=== PATIENT | female | born 1965 | race Caucasian/White ===

== ENCOUNTER 2019-11-10 17:46 | Emergency (ER) | payer BC ==
--- OUTSIDE RECORDS SUMMARY | 2019-11-10 18:19 | XMS REPORT | Continuity of Care Document ---
:1965 External Reference #:[id number] Author Name Carmencita Babb MD Address [address] [place] [address] Care Team Providers Name Role Phone Carmencita Babb MD - Family Medicine Care Team Information [employer] Problems Active Problems Provider Date Diabetes mellitus Shruti March M.D. Onset: 11/04/2014 Pure hypercholesterolemia Onset: 12/26/2011 Essential hypertension Onset: 12/26/2011 Hypothyroidism Shruti March M.D. Onset: 04/29/2015 Benign essential hypertension Carmencita Babb MD Onset: 05/24/2017 Mixed hyperlipidemia Carmencita Babb MD Onset: 05/24/2017 Hyperlipidemia Carmencita Babb MD Onset: 05/24/2017 Gastro-esophageal reflux disease with Carmencita Babb MD Onset: 05/24/2017 esophagitis Working through the pain of grief Carmencita Babb MD Onset: 05/24/2017 Edema Carmencita Babb MD Onset: 05/24/2017 Screening for malignant neoplasm of colon Kalpesh Weir MD Onset: 06/09/2017 Heartburn Kalpesh Weir MD Onset: 06/09/2017 Benign neoplasm of colon Kalpesh Weir MD Onset: 09/08/2017 Benign neoplasm of stomach Kalpesh Weir MD Onset: 09/08/2017 Other hemorrhoids Kalpesh Weir MD Onset: 09/08/2017 Overweight Carmencita Babb MD Onset: 12/25/2017 Gastro-esophageal reflux disease with Kalpesh Weir MD Onset: 07/27/2018 esophagitis Type 2 diabetes mellitus Carmencita Babb MD Onset: 12/28/2018 Volunteer activity Carmencita Babb MD Onset: 12/28/2018 Strain of trapezius muscle Carmencita Babb MD Onset: 06/28/2019 Mckeon's esophagus Carmencita Babb MD Onset: 10/04/2019 Social History Type Date Description Comments Sex Unknown Tobacco Use Start: Unknown Never Smoked Cigarettes Smoking Status Reviewed: 10/04/19 Never Smoked Cigarettes Smokeless Tobacco Never Used Smokeless Tobacco ETOH Use Rarely consumes alcohol 1 dr/MO Tobacco Use Start: Unknown Patient has never smoked Recreational Drug Use Denies Drug Use Allergies, Adverse Reactions, Alerts Active Allergies Reaction Severity Comments Date Erythromycin 12/26/2011 Medications Active Medications SIG Qnty Indications Ordering Date Provider Doxycycline Hyclate 1 tab by mouth 20tabs L03.111 Skinny, 10/02/2019 2X/Day MD Carmencita 100mg Tablets Mupirocin apply to affected 22gm L03.111 Skinny, 10/02/2019 2% Ointment area two times a MD Carmencita day Metoprolol Succinate Take 1 Tablet By 90tabs Skinny, 09/23/2019 ER Mouth Every Day MD Carmencita 100mg Tablets ER 24HR Glipizide ER Take 1 Tablet By 180Tablet Skinny, 02/27/2019 5mg Mouth With MD Carmencita Tablets ER 24HR Breakfast And Supper Lisinopril Take 1 Tablet By 90tabs Skinny, 12/28/2018 40mg Tablets Mouth Every Day MD Carmencita Chlorthalidone 1 by mouth in in 90tabs Skinny, 12/28/2018 50mg the morning MD Carmencita Tablets Januvia Take 1 Tablet By 90tabs E66.3 Skinny, 09/13/2018 50mg Tablets Mouth Every Day MD Carmencita Esomeprazole 1 cap by mouth 90caps K21.0 [facility], 07/27/2018 Magnesium every day latasha Aleman MD 20mg Capsules morning DR Chuy Paniagua Blood check fasting 1units E66.3 Skinny, 08/03/2016 Glucose Monitoring glucose 1x/day at MD Carmencita System alternating times Device dx E11.9 Tyroneyle Lancets check glucose 50units E66.3 Skinny, 08/03/2016 Misc 1x/day e11.9 MD Carmencita Levothyroxine Sodium Take 1 Tablet By 90tabs Skinny, 04/29/2015 Mouth Daily MD Carmencita 75mcg Tablets Simvastatin Take 1 Tablet By 90tabs Skinny, 12/30/2011 10mg Mouth Every Day MD Carmencita Tablets Multivitamin Adult 1 by mouth every Unknown day Tablets History Medications Furosemide Take 1 Tablet By 90tabs Carmencita Babb MD 09/23/2019 - 20mg Tablets Mouth In The 10/02/2019 Morning Medications Administered in Office Medication SIG Qnty Indications Ordering Provider Date PPD Injection Carmencita Babb MD 10/02/2019 PPD Injection Family Nurse 09/11/2018 PPD Injection Carmencita Babb MD 11/04/2016 PPD Injection Carmencita Babb MD 11/02/2016 Immunizations CPT Code Status Date Vaccine Reaction Lot # [id number] Given 10/02/2019 Influenza Virus Vaccine, [id number] Quadrivalent, 36 Mos+, .5ML 88197 Given 06/28/2019 Hepatitis B Vaccine Adult [id number] 73951 Given 02/28/2019 Hepatitis B Vaccine Adult [id number] 26646 Given 12/28/2018 Hepatitis B Vaccine Adult [id number] 39789 Given 12/28/2018 MMR Vaccine, Live, For [id number] Subcutaneous Use 37752 Given 09/13/2018 Influenza Virus Vaccine, [id number] Quadrivalent, 36 Mos+, .5ML 12290 Given 07/11/2017 Influenza Virus Vaccine [place] [address] Given 05/24/2017 Tdap injection [id number] 70192 Given 08/03/2016 Influenza Virus Vaccine Split Virus Use For Individual 3Yr Older Q2038 Given 09/02/2015 Influenza Vaccine (Fluzone) [id number] Age 3 And Older 73344 Given 09/22/2014 flu vaccination Per [facility] [address] Given 08/19/2013 flu vaccination 84269 Given 08/08/2012 flu vaccination 93703 Given 12/26/2011 flu vaccination 61593 Given 11/22/2010 flu vaccination 63285 Given 11/02/2009 flu vaccination 15390 Given 11/02/2009 H1N1 Immuniation Adminstration 17124 Given 02/03/1998 Tetnus Injection Vital Signs Date Vital Result Comment 10/04/2019 9:34am BP Systolic 112 mmHg BP Diastolic 72 mmHg Body Temperature 97.4 F Heart Rate 55 /min Respiratory Rate 16 /min Height 64 inches 5'4" Weight 270.00 lb BMI (Body Mass Index) 46.3 kg/m2 BSA (Body Surface Area) 2.22 m2 [place] body weight in kilograms 54 kg O2 % BldC Oximetry 99 % 10/02/2019 1:34pm BP Systolic Sitting Left Arm 128 mmHg BP Diastolic Sitting Left Arm 76 mmHg Body Temperature 98.1 F Heart Rate 72 /min Respiratory Rate 18 /min Height 64 inches 5'4" Weight 269.00 lb BMI (Body Mass Index) 46.2 kg/m2 BSA (Body Surface Area) 2.22 m2 [place] body weight in kilograms 54 kg Results Test Acquired Date Facility Test Result H/L Range Note Urine Dipstick 10/04/2019 [facility] Ua Color yellow Yellow Ua Clarity clear Clear Ua Leuko neg Negative Ua Nitrite neg Negative Ua Urobilinogen 3.5 High 0.2 - 1.0 E.U./dL Ua Protein pos Negative Ua PH 5.5 Low 6.5-7.5 Ua Blood neg Negative Ua Specific [place] 1.030 1.010-1.030 Ua Ketones pos Negative Ua Bilirubin pos Negative Ua Glucose pos Negative Glycohemoglobin 06/28/2019 [facility] Glycohemoglobin 13.0 % High 4.2-6.3 1, [address] (A1c) [place] [address] [phone] eAG 326 mg/dL Urine Dipstick 06/28/2019 [facility] Inhouse Ua Leuko - Negative Ua Nitrite - Negative Ua Urobilinogen .2 0.2 - 1.0 E.U./dL Ua Protein - Negative Ua PH 5 Low 6.5-7.5 Ua Blood - Negative Ua Specific [place] 1.020 1.010-1.030 Ua Ketones - Negative Ua Bilirubin - Negative Ua Glucose 3+ High Negative 1 E11.21 2 Elevated levels of HbA1c suggest the need for more aggressive treatment of glycemia. The [place] [employer] recommends that a primary goal of therapy should be a HbA1c of <7% and that physicians should re-evaluate the treatment regimen in patients with HbA1c values consistently >8%. Procedures Date Code Description Status 10/04/2019 [id number] Mammogram Completed 09/13/2019 [id number] Diabetic Foot Exam Completed 11/06/2018 [id number] Bone Mineral Density Test Completed 07/27/2017 [id number] Colonoscopy Completed Medical Devices Description No Information Available Encounters Type Date Location Provider Dx Diagnosis Office Visit 10/02/2019 Family Medicine Carmencita Babb, L03.111 Cellulitis of 1:30p Marcos SOLANO MD right axilla Z23 Encounter for immunization Z11.1 Encounter for screening for respiratory tuberculosis F43.21 Adjustment disorder with depressed mood Office Visit 06/28/2019 2:30p Family Medicine Carmencita Babb, S96.212A Strain of Marcos SOLANO MD intrinsic msl/tnd at ank/ft level, left foot, init E11.21 Type 2 diabetes mellitus with diabetic nephropathy F43.21 Adjustment disorder with depressed mood I10 Essential (primary) hypertension S46.811A Strain of musc/fasc/tend at shldr/up arm, right arm, init Z23 Encounter for immunization Assessments Date Code Description Provider 10/04/2019 Z00.00 Encounter for general adult medical Carmencita Babb MD examination without abnormal findings 10/04/2019 E11.21 Type 2 diabetes mellitus with diabetic Carmencita Babb MD nephropathy 10/04/2019 I10 Essential (primary) hypertension Carmencita Babb MD 10/04/2019 E78.5 Hyperlipidemia, unspecified Carmencita Babb MD 10/04/2019 E03.9 Hypothyroidism, unspecified Carmencita Babb MD 10/04/2019 F43.21 Adjustment disorder with depressed mood Carmencita Babb MD 10/04/2019 K21.0 Gastro-esophageal reflux disease with Carmencita Babb MD esophagitis 10/04/2019 K22.70 Mckeon's esophagus without dysplasia Carmencita Babb MD 10/04/2019 L03.111 Cellulitis of right axilla Carmencita Babb MD 10/02/2019 L03.111 Cellulitis of right axilla Carmencita Babb MD 10/02/2019 Z23 Encounter for immunization Carmencita Babb MD 10/02/2019 Z11.1 Encounter for screening for respiratory Carmencita Babb MD tuberculosis 10/02/2019 F43.21 Adjustment disorder with depressed mood Carmencita Babb MD 06/28/2019 S96.212A Strain of intrinsic muscle and tendon at ankle Carmencita Babb MD and foot level, left foot, initial encounter 06/28/2019 E11.21 Type 2 diabetes mellitus with diabetic Carmencita Babb MD nephropathy 06/28/2019 F43.21 Adjustment disorder with depressed mood Carmencita Babb MD 06/28/2019 I10 Essential (primary) hypertension Carmencita Babb MD 06/28/2019 S46.811A Strain of other muscles, fascia and tendons at Carmencita Babb MD shoulder and upper arm level, right arm, initial encounter 06/28/2019 Z23 Encounter for immunization Carmencita Babb MD Plan of Treatment Future Appointment(s):02/07/2020 10:15 am - Carmencita [facility]abb MD at [facility]10/04/2019 - Carmencita Babb MDZ00.00 Encounter for general adult medical examination without abnormal findingsComments:START EXERCISING ON YOUR STATIONARY BIKELOSE WEIGHT;DAILY SUNSCREEN FOR SKIN CANCER PREVENTION; CALCIUM INTAKE DISCUSSEDPAP/PELVIC, COLONOSCOPY UP TO DATE; MAMMOGRAM AND BONE DENSITY ARE ORDEREDLABS ORDERED; IMMUNIZATIONS UP TO DATE;HEALTH CARE PROXY IN OTZXTP36.21 Type 2 diabetes mellitus with diabetic nephropathyComments:labs ordered; considering adding farxiga;cont. on same meds for now; ck glucose more regularly;increase exercise to help you lose weight.follow up with kidney specialist regularly, do not take any antiinflammatory medications like ibuprofen or naproxenFollow up:4 MOI10 Essential (primary) hypertensionComments: WATCH SALT; CONT. WITH SAME MEDICAL REGIME;REGULAR EXERCISE IS SIDHU.E78.5 Hyperlipidemia, unspecifiedComments:CHECK FASTING LIPIDS; CONT. ON SAME MEDS PENDING RESULTS;FOLLOW LOW-CHOL. DIET, REG. GBWEGEFEK26.9 Hypothyroidism, unspecifiedComments:CHECK THYROID LEVEL; ADJUST DOSE NEEDED.F43.21 Adjustment disorder with depressed moodComments:CONTINUE WITH YOUR REGULAR COUNSELING, THIS IS THE BEST THING YOU CAN DO.K21.0 Gastro-esophageal reflux disease with esophagitisComments:CONTINUE ON YOUR CURRENT REGIME AND FOLLOW REFLUX PRECAUTIONS.K22.70 Mckeon's esophagus without dysplasiaComments:WE TALKED ABOUT THIS. UPPER ENDOSCOPY DUE NEXT YEAR PER CURRENT RECOMMENDATIONS.L03.111 Cellulitis of right axillaComments:IMPROVING, HEALING BY SECONDARY INTENTION. FINISH CURRENT ANTIBIOTICS.F/U IF NOT HEALED BY 3 WEEKS Functional Status Functional Condition Comment Date Status Glasses 05/24/2017 Active Mental Status Description No Information Available Referrals Refer to Reason for Referral Status Appt Date Carmencita Babb MD Created [address], [address] [place] [address] [phone]
--- OUTSIDE RECORDS SUMMARY | 2019-11-10 18:20 | XMS REPORT | Continuity of Care Document ---
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 Problems Active Problems Provider Date Diabetes mellitus [...] Esomeprazole 1 cap by mouth 90caps K21.0 [facility], 07/27/2018 Magnesium every day latasha Aleman [...] Code Status Date Vaccine Reaction Lot # [id number] Given 10/02/2019 Influenza Virus Vaccine, [id number] Quadrivalent, 36 Mos+, .5ML 08824 Given 06/28/2019 Hepatitis B Vaccine Adult [id number] 02650 Given 02/28/2019 Hepatitis B Vaccine Adult [id number] 39301 Given 12/28/2018 Hepatitis B Vaccine Adult [id number] 32565 Given 12/28/2018 MMR Vaccine, Live, For [id number] Subcutaneous Use 30442 Given 09/13/2018 Influenza Virus Vaccine, [id number] Quadrivalent, 36 Mos+, .5ML 82174 Given 07/11/2017 Influenza Virus Vaccine [place] [address] Given 05/24/2017 Tdap injection [id number] 29429 Given 08/03/2016 Influenza Virus Vaccine Split Virus Use For Individual 3Yr Older Q2038 Given 09/02/2015 Influenza Vaccine (Fluzone) [id number] Age 3 And Older 77970 Given 09/22/2014 flu vaccination [facility] [place] [address] Given 08/19/2013 flu vaccination 61844 Given 08/08/2012 flu vaccination 60372 Given 12/26/2011 flu vaccination 17382 Given 11/22/2010 flu vaccination 49494 Given 11/02/2009 flu vaccination 19140 Given 11/02/2009 H1N1 Immuniation Adminstration 49437 Given 02/03/1998 Tetnus Injection Vital Signs Date Vital Result Comment 10/04/2019 9:34am BP Systolic 112 mmHg BP Diastolic 72 mmHg Body Temperature 97.4 F Heart Rate 55 /min Respiratory Rate 16 /min Height 64 inches 5'4" Weight 270.00 lb BMI (Body Mass Index) 46.3 kg/m2 BSA (Body Surface Area) 2.22 m2 [place] body weight in kilograms 54 kg O2 % BldC Oximetry 99 % 10/02/2019 1:34pm BP Systolic Sitting Left Arm 128 mmHg BP Diastolic Sitting Left Arm 76 mmHg Body Temperature 98.1 F Heart Rate 72 /min Respiratory Rate 18 /min Height 64 inches 5'4" Weight 269.00 lb BMI (Body Mass Index) 46.2 kg/m2 BSA (Body Surface Area) 2.22 m2 [place] body weight in kilograms 54 kg Results Test Acquired Date Facility Test Result H/L Range Note Urine Dipstick 10/04/2019 [facility] Ua Color yellow Yellow Ua Clarity clear Clear Ua Leuko neg Negative Ua Nitrite neg Negative Ua Urobilinogen 3.5 High 0.2 - 1.0 E.U./dL Ua Protein pos Negative Ua PH 5.5 Low 6.5-7.5 Ua Blood neg Negative Ua Specific [place] 1.030 1.010-1.030 Ua Ketones pos Negative Ua Bilirubin pos Negative Ua Glucose pos Negative Glycohemoglobin 06/28/2019 [facility] Glycohemoglobin 13.0 % High 4.2-6.3 1, [address] (A1c) [place] [address] [phone] eAG 326 mg/dL Urine Dipstick 06/28/2019 [facility] Inhouse Ua Leuko - Negative Ua Nitrite - Negative Ua Urobilinogen .2 0.2 - 1.0 E.U./dL Ua Protein - Negative Ua PH 5 Low 6.5-7.5 Ua Blood - Negative Ua Specific [place] 1.020 1.010-1.030 Ua Ketones - Negative Ua Bilirubin - Negative Ua Glucose 3+ High Negative 1 E11.21 2 Elevated levels of HbA1c suggest the need for more aggressive treatment of glycemia. The [place] [employer] recommends that a primary goal of therapy should be a HbA1c of <7% and that physicians should re-evaluate the treatment regimen in patients with HbA1c values consistently >8%. Procedures Date Code Description Status 10/04/2019 [id number] Mammogram Completed 09/13/2019 [id number] Diabetic Foot Exam Completed 11/06/2018 [id number] Bone Mineral Density Test Completed 07/27/2017 [id number] Colonoscopy Completed Medical Devices Description No Information Available Encounters Type Date Location Provider Dx Diagnosis Office Visit 10/04/2019 Family Medicine Carmencita Babb, Z00.00 Encntr for general 9:30a Marcos SOLANO MD adult medical exam w/o abnormal findings E11.21 Type 2 diabetes mellitus with diabetic nephropathy I10 Essential (primary) hypertension E78.5 Hyperlipidemia, unspecified E03.9 Hypothyroidism, unspecified F43.21 Adjustment disorder with depressed mood K21.0 Gastro-esophageal reflux disease with esophagitis K22.70 Mckeon's esophagus without dysplasia L03.111 Cellulitis of right axilla Office Visit 06/28/2019 2:30p Family Medicine Carmencita [...] 10/02/2019 L03.111 Cellulitis of right axilla Carmencita Bbab MD 06/28/2019 S96.212A Strain of intrinsic muscle [...] 10:15 am - Carmencita Babb MD at [facility]10/02/2019 - Carmencita Babb MDL03.111 Cellulitis of right axillaNew Medication:Doxycycline Hyclate 100 mg - 1 tab by mouth 2X/ DayMupirocin 2 % - apply to affected area two times a dayComments:MORE ANTIBIOTICS PRESCRIBED;MUPIROCIN OINTMENT TO SITE;HOT PACKS OR SOAKS 2-3 X/ DAYTHIS IS A HEALING SEBACEOUS GLAND CYST, YOU MAY EVENTUALLY NEED IT EXCISED.Follow up:HAS APPT. Functional Status Functional Condition Comment Date Status Glasses 05/24/2017 Active Mental Status Description No Information Available Referrals Refer to Reason for Referral Status Appt Date Carmencita Babb MD Created [address] [facility], [address] [place] [address] [phone]
--- OUTSIDE RECORDS SUMMARY | 2019-11-10 18:20 | XMS REPORT | Continuity of Care Document ---
:1965 External Reference #:[id number] Author Name Carmencita Babb MD Address [address] [place] [address] Care Team Providers Name Role Phone Carmencita Babb MD - Family Medicine Care Team Information Information Clerk Problems Active Problems Provider Date Diabetes mellitus [...] Esomeprazole 1 cap by mouth 90caps K21.0 [facility], 07/27/2018 Magnesium every day latasha [...] Code Status Date Vaccine Reaction Lot # 26964 Given 10/02/2019 Influenza Virus Vaccine, [id number] Quadrivalent, 36 Mos+, .5ML 60100 Given 06/28/2019 Hepatitis B Vaccine Adult [id number] 35275 Given 02/28/2019 Hepatitis B Vaccine Adult [id number] 78244 Given 12/28/2018 Hepatitis B Vaccine Adult [id number] 75103 Given 12/28/2018 MMR Vaccine, Live, For [id number] Subcutaneous Use 53157 Given 09/13/2018 Influenza Virus Vaccine, [id number] Quadrivalent, 36 Mos+, .5ML 77642 Given 07/11/2017 Influenza Virus Vaccine [place] [address] Given 05/24/2017 Tdap injection [id number] 66290 Given 08/03/2016 Influenza Virus Vaccine Split Virus Use For Individual 3Yr Older Q2038 Given 09/02/2015 Influenza Vaccine (Fluzone) [id number] Age 3 And Older 84669 Given 09/22/2014 flu vaccination [facility] [place] [address] Given 08/19/2013 flu vaccination 28552 Given 08/08/2012 flu vaccination 52390 Given 12/26/2011 flu vaccination 36913 Given 11/22/2010 flu vaccination 84095 Given 11/02/2009 flu vaccination 08485 Given 11/02/2009 H1N1 Immuniation Adminstration 34348 Given 02/03/1998 Tetnus Injection Vital Signs Date Vital Result Comment 10/04/2019 9:34am BP Systolic 112 mmHg BP Diastolic 72 mmHg Body Temperature 97.4 F Heart Rate 55 /min Respiratory Rate 16 /min Height 64 inches 5'4" Weight 270.00 lb BMI (Body Mass Index) 46.3 kg/m2 BSA (Body Surface Area) 2.22 m2 [place] body weight in kilograms 54 kg O2 % BldC Oximetry 99 % 10/02/2019 1:34pm BP Systolic Sitting Left Arm 128 mmHg BP Diastolic Sitting Left Arm 76 mmHg Body Temperature 98.1 F Heart Rate 72 /min Respiratory Rate 18 /min Height 64 inches 5'4" Weight 269.00 lb BMI (Body Mass Index) 46.2 kg/m2 BSA (Body Surface Area) 2.22 m2 [place] body weight in kilograms 54 kg Results Test Acquired Date Facility Test Result H/L Range Note Urine Dipstick 10/04/2019 [facility] Ua Color yellow Yellow Ua Clarity clear Clear Ua Leuko neg Negative Ua Nitrite neg Negative Ua Urobilinogen 3.5 High 0.2 - 1.0 E.U./dL Ua Protein pos Negative Ua PH 5.5 Low 6.5-7.5 Ua Blood neg Negative Ua Specific [place] 1.030 1.010-1.030 Ua Ketones pos Negative Ua Bilirubin pos Negative Ua Glucose pos Negative Glycohemoglobin 06/28/2019 [facility] Glycohemoglobin 13.0 % High 4.2-6.3 1, [address] (A1c) [place] [address] [phone] eAG 326 mg/dL Urine Dipstick 06/28/2019 [facility] Inhouse Ua Leuko - Negative Ua Nitrite - Negative Ua Urobilinogen .2 0.2 - 1.0 E.U./dL Ua Protein - Negative Ua PH 5 Low 6.5-7.5 Ua Blood - Negative Ua Specific [place] 1.020 1.010-1.030 Ua Ketones - Negative Ua Bilirubin - Negative Ua Glucose 3+ High Negative 1 E11.21 2 Elevated levels of HbA1c suggest the need for more aggressive treatment of glycemia. The [place] Diabetes Association recommends that a primary goal of therapy should be a HbA1c of <7% and that physicians should re-evaluate the treatment regimen in patients with HbA1c values consistently >8%. Procedures Date Code Description Status 10/04/2019 [id number] Mammogram Completed 10/02/2019 95203 Debridement:Skin, And Subcutaneous Tissue Completed 09/13/2019 [id number] Diabetic Foot Exam Completed 11/06/2018 [id number] Bone Mineral Density Test Completed 07/27/2017 [id number] Colonoscopy Completed Medical Devices Description No Information [...] Cellulitis of right axilla Carmencita Babb MD 06/28/2019 S96.212A Strain of [...] other muscles, fascia and tendons at Carmencita Bbab MD shoulder and upper arm level, right arm, initial encounter 06/28/2019 Z23 Encounter for immunization Carmencita Babb MD Plan of Treatment Future Appointment(s):02/07/2020 10:15 am - Carmencita Babb MD at [facility]10/04/2019 - Carmencita Babb MDZ00.00 Encounter for general adult medical examination without abnormal findingsComments:START EXERCISING ON YOUR STATIONARY BIKELOSE WEIGHT;DAILY SUNSCREEN FOR SKIN CANCER PREVENTION; CALCIUM INTAKE DISCUSSEDPAP/PELVIC, COLONOSCOPY UP TO DATE; MAMMOGRAM AND BONE DENSITY ARE ORDEREDLABS ORDERED; IMMUNIZATIONS UP TO DATE;HEALTH CARE PROXY IN QDGWPW70.21 Type 2 diabetes mellitus with diabetic nephropathyComments:labs ordered;cont. on same meds for now; ck glucose more regularly;increase exercise to help you lose weight.follow up with kidney specialist regularly, do not take any antiinflammatory medications like ibuprofen or naproxenFollow up:4 MOI10 Essential (primary) hypertensionComments:WATCH SALT; CONT. WITH SAME MEDICAL REGIME;REGULAR EXERCISE IS SIDHU.E78.5 Hyperlipidemia, unspecifiedComments:CHECK FASTING LIPIDS; CONT. ON SAME MEDS PENDING RESULTS;FOLLOW LOW-CHOL. DIET, REG. OSECDEMOB96.9 Hypothyroidism, unspecifiedComments:CHECK THYROID LEVEL; ADJUST DOSE NEEDED.F43.21 Adjustment disorder with depressed moodComments:CONTINUE WITH YOUR REGULAR COUNSELING, THIS IS THE BEST THING YOU CAN DO.K21.0 Gastro- esophageal reflux disease with esophagitisComments:CONTINUE ON YOUR CURRENT [...] Appt Date Carmencita Babb MD Created [address] [facility], [address] [place] [address] [phone]
[2019-11-10 18:47] VITALS: BP 92/60
--- NOTE | 2019-11-10 18:54 | UC ---
Respiratory Complaint HPI - HPI Summary HPI Summary: 54-year-old female presents with one-week history of a productive cough. States over the past 2-3 days has also started developing some nasal congestion and clear nasal discharge. States cough is worse with activity. Complaints of total chest "achiness" with coughing. Denies fever, chills, ear pain, sore throat, abdominal pain, nausea, or vomiting. - History of Current Complaint Chief Complaint: UCRespiratory Stated Complaint: COUGH/CONGESTION Time Seen by Provider: 11/10/19 18:22 Hx Obtained From: Patient Hx Last Menstrual Period: age 41~ Pain Intensity: 0 - Allergies/Home Medications Allergies/Adverse Reactions: Allergies Allergy/AdvReac Type Severity Reaction Status Date / Time erythromycin base Allergy Severe Hives all Verified 11/10/19 18:48 over Home Medications: Home Medications Chlorthalidone 1 dose PO DAILY 11/10/19 [History Confirmed 11/10/19] Dapagliflozin Propanediol [Farxiga] 1 dose PO QAM 11/10/19 [History Confirmed ] Esomeprazole(NF) [NEXium(NF)] 20 mg PO DAILY 11/10/19 [History Confirmed ] Levothyroxine TAB* [Synthroid TAB*] 50 mcg PO QAM 11/10/19 [History Confirmed ] Lisinopril TAB* [Prinivil TAB*] 40 mg PO DAILY 11/10/19 [History Confirmed 11/10] Metoprolol Succinate 150 mg PO QAM 11/10/19 [History Confirmed 11/10/19] Sitagliptin Phosphate [Januvia] 1 dose PO DAILY 11/10/19 [History Confirmed 03/25] glipiZIDE [Glipizide] 1 dose PO BID 11/10/19 [History Confirmed 11/10/19] PMH/Surg Hx/FS Hx/Imm Hx Endocrine History: Diabetes, Hypothyroidism, Dyslipidemia Cardiovascular History: Hypertension GI/ History: Gastroesophageal Reflux - Surgical History Surgical History: Yes Surgery Procedure, Year, and Place: 1992 C SECTION AND LEFT OOPHORECTOMY, [facility]. 1995 & 1999 CSECTION X2, [facility]. 2004 LAPAROSCOPIC CHOLECYSTECTOMY, [facility]. 2014- LEFT EYE- [facility] [place] - Family History Known Family History: Positive: Non-Contributory - Social History Occupation: Employed Full-time Lives: With Family Alcohol Use: Rare Substance Use Type: None Smoking Status (MU): Never Smoked Tobacco Review of Systems All Other Systems Reviewed And Are Negative: Yes Constitutional: Negative: Fever, Chills Skin: Negative: Rash Eyes: Negative: Drainage, Eye Redness ENT: Positive: Nasal Discharge, Sinus Congestion. Negative: Sore Throat, Ear Ache, Sinus Pain/Tenderness Respiratory: Positive: Cough. Negative: Shortness Of Breath Cardiovascular: Positive: Chest Pain. Negative: Palpitations Gastrointestinal: Negative: Abdominal Pain, Vomiting, Diarrhea, Nausea Genitourinary: Positive: Negative Musculoskeletal: Positive: Negative Neurological: Positive: Negative Is Patient Immunocompromised?: No Physical Exam - Summary Physical Exam Summary: GENERAL APPEARANCE: Well developed, well nourished, alert and cooperative, and appears to be in no acute distress. EYES: Conjunctiva clear. No drainage. EARS: External auditory canals and tympanic membranes clear, hearing grossly intact. NOSE: Mild nasal congestion. No nasal discharge. THROAT: Pharynx normal. No tonsilar inflammation, swelling, exudate, or lesions. Uvula midline. NECK: Neck supple, non-tender without lymphadenopathy. CARDIAC: Normal S1 and S2. No S3, S4 or murmurs. Rhythm is regular. There is no peripheral edema, cyanosis or pallor. Extremities are warm and well perfused. Capillary refill is less than 2 seconds. Peripheral pulses intact. LUNGS: Mild diffuse, bilateral expiratory wheezes. Dry, bronchospastic cough. ABDOMEN: Positive bowel sounds. Soft, nondistended, nontender. No guarding or rebound. No masses or hepatosplenomegally. MUSKULOSKELETAL: ROM intact to all extremities. No joint erythema or tenderness. Normal muscular development. Normal gait. SKIN: Skin normal color, texture and turgor with no lesions or eruptions. Triage Information Reviewed: Yes Vital Signs: Initial Vital Signs Temp 98.9 F 11/10/19 18:37 Pulse 76 11/10/19 18:37 Resp 18 11/10/19 18:37 BP 92/60 11/10/19 18:37 Pulse Ox 95 11/10/19 18:37 Vital Signs Reviewed: Yes Respiratory Course/Dx - Course Course Of Treatment: 54-year-old female presents with one-week history of a productive cough. States over the past 2-3 days has also started developing some nasal congestion and clear nasal discharge. States cough is worse with activity. Complaints of total chest "achiness" with coughing. Denies fever, chills, ear pain, sore throat, abdominal pain, nausea, or vomiting. Afebrile. Vital signs stable. Patient had mild nasal congestion, mild diffuse bilateral expiratory wheezes, a bronchospastic cough and otherwise unremarkable exam. Discussed with patient that her symptoms were likely an acute bronchitis with reactive airway disease therefore we will plan to place her on a short course of prednisone 40 mg daily 5 days and cover her with doxycycline 100 mg twice a day 7 days especially considering her underlying diabetes and the duration of her symptoms. She is to follow-up with her primary care provider in 3 days especially if symptoms are not improving. Anticipatory guidance and warning symptoms are reviewed with the patient. Verbalizes understanding and agrees with plan of care. - Differential Dx/Diagnosis Differential Diagnosis/HQI/PQRI: Bronchitis, Influenza, Lower Resp Infection Provider Diagnosis: Acute bronchitis, Reactive airway disease that is not asthma Discharge ED - Sign-Out/Discharge Documenting (check all that apply): Patient Departure All imaging exams completed and their final reports reviewed: No Studies - Discharge Plan Condition: Stable Disposition: HOME Prescriptions: Benzonatate CAP* [Tessalon 100 MG CAP*] 100 mg PO TID PRN #21 cap PRN Reason: Cough Doxycycline Hyclate 100 mg PO BID 7 Days #14 tablet predniSONE 20 mg TAB [Deltasone 20 MG TAB*] 40 mg PO DAILY 4 Days #8 tab Patient Education Materials: Acute Bronchitis (ED), Wheezing (ED) Referrals: Carmencita Babb MD [Primary Care Provider] - 3 Days Additional Instructions: Your history and exam are consistent with acute bronchitis. Considering the duration of your symptoms and the wheezing we will start you on an antibiotic and put you on a short course of steroids. Take doxycycline 100 mg 1 tab twice a day for the 7 days. We gave you the first dose in the clinic. Start prednisone 40 mg daily for 4 days starting tomorrow. We gave you a dose in the clinic tonight. Get plenty of rest. Drink plenty of fluids. Run a cool mist humidifer in your room at night. Take over the counter acetaminophen (Tylenol) or ibuprofen (Advil, Motrin) according to directions as needed for pain or fever. Take Tessalon Perles 1 cap every 8 hours as needed for cough. Follow up with your primary care provider in 3 days if symptoms do not improve. Seek immediate medical attention in the emergency room if you have fever greater than 100.5 F despite taking acetaminophen or ibuprofen, have chest pain , difficulty breathing, or have any worsening of symptoms. - Billing Disposition and Condition Condition: STABLE Disposition: Home
[2019-11-10] MEDS ORDERED: DOXYcycline CAP(*) 100 MG PO ONE (19:03)
== END 2019-11-10 19:44 | disposition home or self-care (01) ==
LOC: UCCORT 17:46
DX: J20.9 Acute bronchitis, unspecified (principal); J98.8 Other specified respiratory disorders; E11.9 Type 2 diabetes mellitus without complications; E03.9 Hypothyroidism, unspecified; K21.9 Gastro-esophageal reflux disease without esophagitis; Z88.1 Allergy status to other antibiotic agents; Z79.84 Long term (current) use of oral hypoglycemic drugs; Z79.890 Hormone replacement therapy; Z79.899 Other long term (current) drug therapy
CPT/HCPCS: 99202; A9270-GY; G0463; J7512